=== PATIENT | male | born 1990 | race Caucasian/White ===

== ENCOUNTER 2017-12-25 16:30 | Emergency (ER) | payer OTHER ==
[2017-12-25 17:18] VITALS: BP 126/65
--- NOTE | 2017-12-25 17:31 | UC ---
Back Pain HPI - HPI Summary HPI Summary: patient with an acute low back injury seen pcp and rx medrol dose and flexeril-- -patient has PT set up for tomorrow---patient has pain in left SI joint area-- no radiation in to leg no bowel or bladder issues. patient request week off from work at [employer] - History of Current Complaint Chief Complaint: UCBackPain Stated Complaint: BACK PAIN Time Seen by Provider: 12/25/17 17:08 Hx Obtained From: Patient Onset/Duration: Sudden Onset Pain Intensity: 5 Pain Scale Used: 0-10 Numeric Back Pain: Is Discrete @ Character: Aching, Throbbing Aggravating Factor(s): Movement, Lifting, Bending Alleviating Factor(s): Rest, Position Associated Signs And Symptoms: Positive: Negative - Allergies/Home Medications Allergies/Adverse Reactions: Allergies Allergy/AdvReac Type Severity Reaction Status Date / Time No Known Allergies Allergy Verified 12/25/17 17:18 Home Medications: Home Medications Cyclobenzaprine TAB* [Flexeril 10 MG TAB*] 10 mg PO BEDTIME 12/25/17 [History Confirmed 12/25/17] methylPREDNISolone [Medrol Dosepak 4 MG*] 0 mg PO .SEE JULES INSTRUCTION 12/25/17 [History Confirmed 12/25/17] PMH/Surg Hx/FS Hx/Imm Hx Previously Healthy: Yes - Surgical History Surgical History: None - Family History Known Family History: Positive: None - Social History Occupation: Employed Full-time Lives: With Family Alcohol Use: Occasionally Substance Use Type: None Smoking Status (MU): Never Smoked Tobacco Review of Systems Constitutional: Negative Skin: Negative Eyes: Negative ENT: Negative Respiratory: Negative Cardiovascular: Negative Gastrointestinal: Negative Genitourinary: Negative Motor: Negative Neurovascular: Negative Musculoskeletal: Arthralgia - left SI PAIN Neurological: Negative Psychological: Negative Is Patient Immunocompromised?: No All Other Systems Reviewed And Are Negative: Yes Physical Exam Triage Information Reviewed: Yes Appearance: Well-Appearing, No Pain Distress, Well-Nourished Vital Signs: Initial Vital Signs Temp 98.7 F 12/25/17 17:06 Pulse 91 12/25/17 17:06 Resp 17 12/25/17 17:06 BP 126/65 12/25/17 17:06 Pulse Ox 99 12/25/17 17:06 Vital Signs Reviewed: Yes Eye Exam: Normal Eyes: Positive: Conjunctiva Clear ENT Exam: Normal ENT: Positive: Normal ENT inspection, Pharyngeal erythema, Nasal congestion Dental Exam: Normal Neck exam: Normal Neck: Positive: Supple, Nontender Respiratory Exam: Normal Respiratory: Positive: Chest non-tender, No respiratory distress, No accessory muscle use Cardiovascular Exam: Normal Cardiovascular: Positive: RRR, Pulses Normal, Brisk Capillary Refill Abdomen Description: Negative: CVA Tenderness (R), CVA Tenderness (L) Musculoskeletal Exam: Normal Musculoskeletal: Positive: Strength Intact, ROM Intact, No Edema Neurological Exam: Normal Neurological: Positive: Alert, Muscle Tone Normal Psychological Exam: Normal Skin Exam: Normal Back Pain Course/Dx - Course Course Of Treatment: CONTINUE TREATMENT PLANNED, FOLLOW WITH PCP PRN - Differential Dx/Diagnosis Provider Diagnoses: ACUTE LEFT LOWER BACK PAIN Discharge - Sign-Out/Discharge Documenting (check all that apply): Discharge/Admit/Transfer - Discharge Plan Condition: Stable Disposition: HOME Patient Education Materials: Low Back Strain (ED), Acute Low Back Pain (ED) Forms: *Work Release Referrals: Allison Gold PA [Physician Cans Vacuum Tester] - If Needed - Billing Disposition and Condition Condition: STABLE Disposition: Home
== END 2017-12-25 17:46 | disposition home or self-care (01) ==
LOC: UCCORT 16:30
DX: M54.5 Low back pain (principal)
CPT/HCPCS: 99211; G0463

== ENCOUNTER 2017-12-29 12:54 | Emergency (ER) | payer OTHER ==
--- OUTSIDE RECORDS SUMMARY | 2017-12-29 13:00 | XMS REPORT ---
:1990 External Reference #:[id number] Author Organization [facility] Address [address], [address] [place] [address] Phone [phone] Care Team Providers Name Role Phone Kirti Gold PA Primary Care Physician Unavailable Payers Type Date Identification Numbers Payment Provider Subscriber Commercial Policy Number: [id number] Julita[facility] Mikael Montes PayID: [id number] [address] [place] [address] Medigap Part B Expires: 2017 Policy Number: [id number] [employer] Mikael Montes PayID: [id number] [address] [address] [place] [address] Problems Date Description Provider Status Onset: 12/07/2017 Pain in scrotum Mary Pepe M.D. 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 day Levofloxacin / Active Tablets 500mg 1 tab by Unknown 0000 mouth every day for 10 days Ibu / Active Tablets 800mg 1 q 8 Unknown 0000 hrs No Active Unknown Medications 2014 - 2017 Cephalexin / Hx Capsules 500mg 28caps 1 tab by Unknown 0000 - mouth four 2015 times a day after meals Hydrocodone / Hx Tablets 5-300mg 30tabs 1 tab by Unknown Bitartrate/Acetami 0000 mouth nophen every 4 hours as needed Cyclobenzaprine / Hx Tablets 10mg 20tabs 1 by Unknown HCL 0000 mouth three times a day as needed muscle spasms Naprosyn / Hx Tablets 500mg 60tabs 1 by Unknown 0000 mouth twice a day after meals Vital Signs Date Vital Result Comment 12/07/2017 BP Systolic 120 mmHg BP Diastolic 69 mmHg Body Temperature 98.1 F Heart Rate 71 /min Respiratory Rate 18 /min Height 71 inches 5'11" Weight 174.00 lb BMI (Body Mass Index) 24.3 kg/m2 BSA (Body Surface Area) 1.99 m2 [place] body weight in kilograms 78 O2 % BldC Oximetry 94 % Pain Level 5 testicular 03/26/2014 BP Systolic Sitting Left Arm 108 mmHg BP Diastolic Sitting Left Arm 72 mmHg Heart Rate 76 /min Height 71 inches 5'11" Weight 172.00 lb BMI (Body Mass Index) 24.0 kg/m2 BSA (Body Surface Area) 1.98 m2 Results Description No Information Procedures Description No Information Encounters Type Date Location Provider CPT E/M Dx Office Visit 06/25/2014 1:45p [place] [address] V67.09 706.2 Office Visit 03/26/2014 11:30a [place] [address] 706.2 Plan of Care Future Appointment(s):01/18/2018 4:00 pm - Mary Pepe M.D. at [id number] - Mary Pepe M.D.I86.1 Scrotal varicesComments:Patient is currently asymptomatic and he has no issues with fertility. I reassured the patient.N50.82 Scrotal painNew Xrays:US/TesticularComments:We'll obtain a scrotal ultrasound for further evaluation and to follow-up on the microlithiasis thatwas present 6 months ago. Patient to follow-up with me in 6 weeks.Pt was Unable to urinate today fora UA.
--- OUTSIDE RECORDS SUMMARY | 2017-12-29 13:00 | XMS REPORT ---
:1990 External Reference #:[id number] Author Organization [facility] Address [address], [address] [place] [address] Phone [phone] Care Team Providers Name Role Phone Kirti Gold PA Primary Care Physician Unavailable Payers Type Date Identification Numbers Payment Provider Subscriber Commercial Policy Number: [id number] [employer] Mikael Montes PayID: [id number] [address] [place] [address] Medigap Part B Expires: 2017 Policy Number: [id number] [employer] Mikael Montes PayID: [id number] [address] [address] [place] [address] Problems Date Description Provider Status Onset: 12/15/2017 Right lower quadrant pain Mary Pepe M.D. Active Onset: 12/07/2017 Epididymitis without abscess Mary Pepe M.D. Active Onset: 12/07/2017 Pain in scrotum Mary Pepe M.D. 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 day Ibu / Active Tablets 800mg 1 q 8 Unknown 0000 hrs No Active Hx Unknown Medications 2014 - 2017 Cephalexin / Hx Capsules 500mg 28caps 1 tab by Unknown 0000 - mouth 2015 times a day after meals Hydrocodone / Hx Tablets 5-300mg 30tabs 1 tab by Unknown Bitartrate/Acetami 0000 mouth nophen every 4 hours as needed Cyclobenzaprine / Hx Tablets 10mg 20tabs 1 by Unknown HCL 0000 mouth three times a day as needed muscle spasms Naprosyn / Hx Tablets 500mg 60tabs 1 by Unknown 0000 mouth twice a day after meals Levofloxacin / Hx Tablets 500mg 1 tab by Unknown 0000 - mouth 12/15/ 2017 day for 10 days Vital Signs Date Vital Result Comment 12/15/2017 BP Systolic 108 mmHg BP Diastolic 76 mmHg Body Temperature 98.9 F Heart Rate 77 /min Respiratory Rate 16 /min Height 71 inches 5'11" [place] body weight in kilograms 78 O2 % BldC Oximetry 98 % Pain Level 4 testicular 12/07/2017 BP Systolic 120 mmHg BP Diastolic 69 mmHg Body Temperature 98.1 F Heart Rate 71 /min Respiratory Rate 18 /min Height 71 inches 5'11" Weight 174.00 lb BMI (Body Mass Index) 24.3 kg/m2 BSA (Body Surface Area) 1.99 m2 [place] body weight in kilograms 78 O2 % [...] Location Provider CPT E/M Dx Office Visit 12/07/2017 4:00p Urology Mary Pepe M.D. 31405 I86.1 N50.82 N45.1 Office Visit 06/25/2014 1:45p [place] [address] V67.09 706.2 Office Visit 03/26/2014 11:30a [place] [address] 706.2 Plan of Care Future Appointment(s):01/18/2018 4:00 pm - Mary Pepe M.D. at [id number] - Mary Pepe M.D.R10.31 Right lower quadrant painNew Xrays:CT, Abdomen & Pelvis W/O ContrastComments:Patient with stabbing right lower quadrant pain and back pain. I will order a CT scan for further evaluation. I told the patient this pain is unlikely to be due to scrotal pathology at this time. I told him to stop antibiotics. I'll send his urine for urinalysis.
[2017-12-29 13:37] VITALS: BP 108/65
--- NOTE | 2017-12-29 14:03 | UC ---
General HPI - HPI Summary HPI Summary: Mr. Montes is pleasant 27 yo gentleman c/o mid to right lower back pain. Sx started approx 12/14/17, unclear trauma. No p/d/w. Pain initially radiated down his R leg. Sx have improved with physical therapy and medrol dose shirley / flexeril. Still uncomfortable, has not yet seen pcp but plans to. Mr. 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 Pain is better. - History of Current Complaint Chief Complaint: UCBackPain Stated Complaint: BACK PAIN Time Seen by Provider: 12/29/17 13:56 Hx Obtained From: Patient Pain Intensity: 3 - Allergy/Home Medications Allergies/Adverse Reactions: Allergies Allergy/AdvReac Type Severity Reaction Status Date / Time No Known Allergies Allergy Verified 12/29/17 13:31 PMH/Surg Hx/FS Hx/Imm Hx Previously Healthy: Yes - Surgical History Surgical History: None - Family History Known Family History: Positive: None - Social History Occupation: Employed Full-time Alcohol Use: Occasionally Substance Use Type: None Smoking Status (MU): Never Smoked Tobacco - Immunization History Most Recent Tetanus Shot: UNSURE Review of Systems Constitutional: Negative Skin: Negative Eyes: Negative ENT: Negative Respiratory: Negative Cardiovascular: Negative Gastrointestinal: Negative Genitourinary: Negative - recent completion for epidydimitis Motor: Other - see hpi Neurovascular: Other - see hpi Musculoskeletal: Arthralgia, Myalgia Neurological: Negative - see hpi Psychological: Negative Is Patient Immunocompromised?: No All Other Systems Reviewed And Are Negative: Yes Physical Exam Triage Information Reviewed: Yes Appearance: Well-Nourished - sitting up Vital Signs: Initial Vital Signs Temp 98.1 F 12/29/17 13:32 Pulse 85 12/29/17 13:32 Resp 16 12/29/17 13:32 BP 108/65 12/29/17 13:32 Pulse Ox 97 12/29/17 13:32 Vital Signs Reviewed: Yes Eye Exam: Normal - grossly normal Neck exam: Normal Neck: Positive: Supple, Nontender Respiratory Exam: Normal Respiratory: Positive: Chest non-tender, Lungs clear, Normal breath sounds, No respiratory distress, No accessory muscle use Cardiovascular Exam: Normal Cardiovascular: Positive: RRR, No Murmur, Pulses Normal, Brisk Capillary Refill Abdominal Exam: Normal - no cvat appreciated Abdomen Description: Positive: Nontender Neurological Exam: Normal - nonfocal. DTR's Brach 2+ bilat, Pat 2+ bilat. Able to stand on toes. Gait slow, steady. Tender low back mid - low lumbar region, extending to right. + spasm palbable. No redness, rash, crepitus appreciated. Psychological Exam: Normal - conversing easily and appropriately Skin Exam: Normal - no visible or reported rash Course/Dx - Course Course Of Treatment: Mr. 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 He will f/u pcp, and continue phys therapy. Meds as needed as previously prescribed. Recently completed abx (quinolone?), but pain started prior to initiation abx. No current abx. Work note written as below. Questions as posed answered to the best of my ability. - Differential Dx - Multi-Symptom Provider Diagnoses: Acute - subacute low back pain Discharge - Sign-Out/Discharge Documenting (check all that apply): Patient Departure - Discharge Plan Condition: Stable Disposition: HOME Patient Education Materials: Acute Low Back Pain (ED) Forms: *Work Release Referrals: Flora Mas MD [Primary Care Provider] - Additional Instructions: Follow up with your primary care physician - next week. Continue physical therapy as prescribed. Continue current treatment plan, unless otherwise recommended by your doctor. Seek medical attention for worse or new problems. - Billing Disposition and Condition Condition: STABLE Disposition: Home
== END 2017-12-29 14:30 | disposition home or self-care (01) ==
LOC: UCCORT 12:54
DX: M54.5 Low back pain (principal)
CPT/HCPCS: 99211; G0463

== ENCOUNTER 2018-07-13 09:28 | Emergency (ER) | payer OTHER ==
[2018-07-13 10:05] VITALS: BP 139/64
[2018-07-13 10:19] LABS: Influenza A Molecular POSITIVE (Negative)
--- NOTE | 2018-07-13 10:32 | UC ---
UC General HPI - HPI Summary HPI Summary: PT C/O FEVER, CHILLS, BODY ACHES AND HEADACHE SINCE YESTERDAY. AND CHILD HAVE THE SAME. - History of Current Complaint Chief Complaint: UCGeneralIllness Stated Complaint: COUGH,FEVER,CONGESTION Time Seen by Provider: 07/13/18 10:16 Hx Obtained From: Patient Onset/Duration: Sudden Onset Timing: Constant Pain Intensity: 7 Associated Signs & Symptoms: Positive: Cough. Negative: Chest Pain, SOB - Allergy/Home Medications Allergies/Adverse Reactions: Allergies Allergy/AdvReac Type Severity Reaction Status Date / Time No Known Allergies Allergy Verified 07/13/18 10:04 PMH/Surg Hx/FS Hx/Imm Hx Previously Healthy: Yes - Surgical History Surgical History: None - Family History Known Family History: Positive: None, Non-Contributory - Social History Occupation: Employed Full-time Alcohol Use: Occasionally Substance Use Type: None Smoking Status (MU): Never Smoked Tobacco - Immunization History Most Recent Tetanus Shot: UNSURE Vaccination Up to Date: Yes Review of Systems All Other Systems Reviewed And Are Negative: Yes Constitutional: Positive: Fever, Chills Skin: Positive: Negative Eyes: Positive: Negative ENT: Positive: Negative Respiratory: Positive: Cough. Negative: Shortness Of Breath Cardiovascular: Positive: Negative Gastrointestinal: Positive: Negative Genitourinary: Positive: Negative Motor: Positive: Negative Neurovascular: Positive: Negative Musculoskeletal: Positive: Myalgia Neurological: Positive: Headache Psychological: Positive: Negative Is Patient Immunocompromised?: No Physical Exam Triage Information Reviewed: Yes Appearance: Ill-Appearing - BUT NON TOXIC Vital Signs: Initial Vital Signs Temp 99.1 F 07/13/18 10:02 Pulse 122 07/13/18 10:02 Resp 22 07/13/18 10:02 BP 139/64 07/13/18 10:02 Pulse Ox 100 07/13/18 10:02 Vital Signs Reviewed: Yes Eyes: Positive: Conjunctiva Clear ENT: Positive: Pharynx normal, TMs normal. Negative: Nasal congestion, Nasal drainage Neck: Positive: Supple, Nontender, No Lymphadenopathy Respiratory: Positive: Lungs clear, Normal breath sounds, No respiratory distress Cardiovascular: Positive: No Murmur, Tachycardia - 120. Negative: Brisk Capillary Refill Abdomen Description: Positive: Nontender, No Organomegaly, Soft. Negative: Distended, Guarding Bowel Sounds: Positive: Present Musculoskeletal: Positive: ROM Intact Neurological: Positive: Alert Psychological: Positive: Age Appropriate Behavior Skin Exam: Normal Diagnostics - Laboratory Diagnostic Studies Completed/Ordered: RAPID FLU=A+ Course/Dx - Course Course Of Treatment: PT'S FAMILY WITH SAME. PT OPTING FOR TAMIFLU. RISK/ BENEFITS DISCUSSED PRE TX. WITH ASTHMA AND CILD 1 YO, BOTHING TX WELL. - Diagnoses Provider Diagnosis: Influenza A Discharge - Sign-Out/Discharge Documenting (check all that apply): Patient Departure All imaging exams completed and their final reports reviewed: No Studies - Discharge Plan Condition: Stable Disposition: HOME Prescriptions: Oseltamivir CAP* [Tamiflu CAP*] 75 mg PO BID 5 Days #10 cap Patient Education Materials: Influenza (DC) Forms: *Work Release Referrals: Allison Gold PA [Primary Care Provider] - 7 Days - Billing Disposition and Condition Condition: STABLE Disposition: Home
== END 2018-07-13 10:56 | disposition home or self-care (01) ==
LOC: UCCORT 09:28
DX: J10.1 Influenza due to other identified influenza virus with other respiratory manifestations (principal)
CPT/HCPCS: 99212; G0463